=== PATIENT | female | born 2000 | race African-American/Black ===

== ENCOUNTER 2018-04-30 22:20 | Emergency (ER) | payer OTHER, SELFPAY ==
[2018-04-30 22:46] LABS: Pregnancy Test - Urine (BHCG) Negative (Negative); Pregu Control Background? CLEAR/WHITE (CLR/WHITE); Pregu Control Bar Appear? YES (CONTROL BAR)
== END 2018-04-30 23:44 | disposition home or self-care (01) ==
LOC: ERS 22:20
DX: N92.6 Irregular menstruation, unspecified (principal)
CPT/HCPCS: 81025; 99282

== ENCOUNTER 2020-11-05 06:13 | Emergency (ER) | payer OTHER | END 2020-11-05 08:30 | disposition home or self-care (01) | LOC: ERS 06:13 | DX: S60.211A Contusion of right wrist, initial encounter (principal); D64.9 Anemia, unspecified; W18.2XXA Fall in (into) shower or empty bathtub, initial encounter ==